=== PATIENT | male | born 1975 ===

== ENCOUNTER 2017-03-18 07:58 | Emergency (ER) | payer SELFPAY ==
[~2017-03-18 07:58] MED LIST: CLEOCIN HCL150 MG PO; IBUPROFEN400 MG PO; NORCO 5/325 TAB1 TAB PO; VEETIDS PO
== END 2017-03-18 08:54 ==
LOC: EDMED 07:58
PROC: 0H9KXZZ Drainage of Right Lower Leg Skin, External Approach (ICD-10-PCS; principal; 2017-03-18)
PROC: 0H9HXZZ Drainage of Right Upper Leg Skin, External Approach (ICD-10-PCS; 2017-03-18)
DX: L02.415 Cutaneous abscess of right lower limb (principal)